=== PATIENT | female | born 1990 | race Caucasian/White ===

== ENCOUNTER 2017-01-25 19:41 | Emergency (ER) | payer MEDICAID ==
[~2017-01-25] VITALS: Ht 165.1 cm; Wt 103.4 kg
[~2017-01-25 19:41] MED LIST: AMOX/CLAV POT 81 TAB PO; ATIVAN0.5 MG PO; CARAFATE1 GM/10 ML PO; DEPAKOTE500 MG PO; PERCOCET 325 MG1 TA2 PO; PREDNISONE10 MG PO; PROTONIX40 MG PO; Synthroid,Lev125 MCG PO; ZANTAC 150150 MG PO
[2017-01-25] MEDS ORDERED: FLUOROMETHOLONE (19:59)
[2017-01-25] MEDS ORDERED: MEDROL DOSEPAK4 MG PO (20:22)
== END 2017-01-25 20:25 | disposition home or self-care (01) ==
LOC: ED 19:41
DX: H15.102 Unspecified episcleritis, left eye (principal); Z88.8 Allergy status to other drugs, medicaments and biological substances

== ENCOUNTER 2017-03-11 11:11 | Emergency (ER) | payer OTHER ==
[~2017-03-11] VITALS: Ht 165.1 cm; Wt 104.3 kg
[~2017-03-11 11:11] MED LIST changes: +FLUOROMETHOLONE; +MEDROL DOSEPAK4 MG PO
[2017-03-11] MEDS ORDERED: MIRENA52 MG IU (11:37)
[2017-03-11] MEDS ORDERED: Motrin,Rufen800 MG PO ×2 (14:21→14:24)
[2017-03-11] MEDS ORDERED: CYCLOBENZAPRINE10 MG PO ×2 (14:21→14:24)
== END 2017-03-11 14:43 | disposition home or self-care (01) ==
LOC: ED 11:11
DX: S16.1XXA Strain of muscle, fascia and tendon at neck level, initial encounter (principal); S09.90XA Unspecified injury of head, initial encounter; K21.9 Gastro-esophageal reflux disease without esophagitis; Z88.8 Allergy status to other drugs, medicaments and biological substances; Z79.899 Other long term (current) drug therapy; V87.7XXA Person injured in collision between other specified motor vehicles (traffic), initial encounter; Y93.89 Activity, other specified; Y92.89 Other specified places as the place of occurrence of the external cause; Y99.8 Other external cause status

== ENCOUNTER 2018-10-20 08:34 | Emergency (ER) | payer OTHER ==
[~2018-10-20] VITALS: Ht 165.1 cm; Wt 104.3 kg
[~2018-10-20 08:34] MED LIST changes: +CYCLOBENZAPRINE10 MG PO; +MIRENA52 MG IU; +Motrin,Rufen800 MG PO
[2018-10-20] MEDS ORDERED: DIAZEPAM5 MG PO (08:41)
[2018-10-20] MEDS ORDERED: PREDNISONE50 MG PO (08:54)
== END 2018-10-20 09:10 | disposition home or self-care (01) ==
LOC: ED 08:34
DX: L25.9 Unspecified contact dermatitis, unspecified cause (principal); K21.9 Gastro-esophageal reflux disease without esophagitis; Z88.8 Allergy status to other drugs, medicaments and biological substances; Z79.899 Other long term (current) drug therapy

== ENCOUNTER 2019-04-11 22:13 | Emergency (ER) | payer OTHER ==
[~2019-04-11] VITALS: Ht 340.3 cm; Wt 104.3 kg
[~2019-04-11 22:13] MED LIST changes: +DIAZEPAM5 MG PO; +PREDNISONE50 MG PO
[2019-04-11] MEDS ORDERED: VIBRAMYCIN100 MG PO (22:42)
[2019-04-11] MEDS ORDERED: ATARAX,VISTARIL50 MG PO (22:42)
[2019-04-11] MEDS ORDERED: KENALOG 0.1%80 GM T (22:42)
== END 2019-04-11 23:25 | disposition home or self-care (01) ==
LOC: ED 22:13
DX: S40.862A Insect bite (nonvenomous) of left upper arm, initial encounter (principal); S40.861A Insect bite (nonvenomous) of right upper arm, initial encounter; S80.862A Insect bite (nonvenomous), left lower leg, initial encounter; S80.861A Insect bite (nonvenomous), right lower leg, initial encounter; L08.9 Local infection of the skin and subcutaneous tissue, unspecified; K21.9 Gastro-esophageal reflux disease without esophagitis; Z79.899 Other long term (current) drug therapy; Z88.8 Allergy status to other drugs, medicaments and biological substances; W57.XXXA Bitten or stung by nonvenomous insect and other nonvenomous arthropods, initial encounter; Y93.89 Activity, other specified; Y92.89 Other specified places as the place of occurrence of the external cause; Y99.8 Other external cause status

== ENCOUNTER → 2021-12-09 | Outpatient (CLI) | payer OTHER ==
[~2021-12-09] MED LIST changes: +ATARAX,VISTARIL50 MG PO; +KENALOG 0.1%80 GM T; +VIBRAMYCIN100 MG PO
== END | disposition home or self-care (01) ==
LOC: RAD 17:37
PROVIDERS: ATTEND Nurse Practitioner Family
DX: F41.9 Anxiety disorder, unspecified (principal); R00.0 Tachycardia, unspecified; E66.9 Obesity, unspecified; Z82.49 Family history of ischemic heart disease and other diseases of the circulatory system

== ENCOUNTER → 2021-12-27 | Outpatient (CLI) | payer OTHER | END | disposition home or self-care (01) | LOC: CARD 12-13 09:00 | PROVIDERS: ATTEND Nurse Practitioner Family | DX: R00.0 Tachycardia, unspecified (principal); F41.9 Anxiety disorder, unspecified; E66.9 Obesity, unspecified; Z82.49 Family history of ischemic heart disease and other diseases of the circulatory system ==

== ENCOUNTER → 2022-04-09 | Outpatient (CLI) | payer OTHER | END | disposition home or self-care (01) | LOC: RAD 08:21 | PROVIDERS: ATTEND Nurse Practitioner Family | DX: R06.02 Shortness of breath (principal) ==

== ENCOUNTER → 2022-06-10 | Outpatient (CLI) | payer OTHER ==
[~2022-06-10] MED LIST changes: +LAMICTAL200 MG PO; +VALIUM5 MG PO; +VRAYLAR4.5 MG PO; +VYVANSE60 MG PO
== END ==
LOC: RAD 10:34
PROVIDERS: ATTEND Nurse Practitioner Family
DX: U07.1 COVID-19 (principal); R05.1 Acute cough; R06.2 Wheezing; R06.02 Shortness of breath; R00.0 Tachycardia, unspecified

== ENCOUNTER 2022-06-11 13:44 | Emergency (ER) | payer OTHER ==
[2022-06-11 13:59] LABS: BASO % 0.2 % (0.0-1.0); EOS % 0.1 % (1.0-4.0); LYMPH # 1.7 10*3/uL (1.3-4.4); LYMPH % 8.8 % (27.0-41.0); MEAN CELL VOLUME 87.3 fl (81.0-99.0); MEAN CORPUSCULAR HGB 28.2 pg (27.0-31.0); MEAN CORPUSCULAR HGB CONC 32.3 g/dl (33.0-37.0); MONO # 0.8 10*3/uL (0.1-1.0); NEUT # 16.1 10*3/uL (2.3-7.9); NEUT % 85.3 % (47.0-73.0); PLATELET COUNT AUTOMATED 317 10*3/uL (130-400); RED BLOOD COUNT 5.04 10*6/uL (4.10-5.10); RED CELL DISTRI WIDTH 13.2 % (0-14.5); WHITE BLOOD COUNT 18.8 10*3/uL (4.8-10.8)
[2022-06-11 14:19] LABS: ALKALINE PHOSPHATASE 99 U/L (45-117); BUN 8 mg/dl (7-24); CHLORIDE 108 mmol/L (98-107); CREATININE 0.89 mg/dL (0.55-1.02); POTASSIUM 4.1 mmol/L (3.5-5.1); SGOT/AST 18 IU/L (3-35); SGPT/ALT 31 U/L (12-78); SODIUM 140 mmol/L (136-145); TOTAL PROTEIN 7.6 gm/dL (6.4-8.2)
== END 2022-06-11 17:05 | disposition home or self-care (01) ==
LOC: ED 13:44
PROVIDERS: Internal Medicine
DX: T50.995A Adverse effect of other drugs, medicaments and biological substances, initial encounter (principal); Z88.8 Allergy status to other drugs, medicaments and biological substances; Z79.899 Other long term (current) drug therapy; Y92.89 Other specified places as the place of occurrence of the external cause

== ENCOUNTER → 2024-05-13 | Outpatient (CLI) | payer OTHER ==
[2024-05-13 15:46] LABS: BASO % 0.3 % (0.0-1.0); EOS # 0.1 10*3/uL (0.0-0.4); EOS % 1.4 % (1.0-4.0); HEMATOCRIT 42.7 % (37.0-47.0); LYMPH # 2.2 10*3/uL (1.3-4.4); LYMPH % 21.7 % (27.0-41.0); MEAN CELL VOLUME 85.1 fl (81.0-99.0); MEAN CORPUSCULAR HGB 27.7 pg (27.0-31.0); MEAN CORPUSCULAR HGB CONC 32.6 g/dl (33.0-37.0); MEAN PLATELET VOLUME 10.5 fl (9.6-12.3); MONO # 0.5 10*3/uL (0.1-1.0); MONO % 5.3 % (3.0-9.0); NEUT # 7.2 10*3/uL (2.3-7.9); NEUT % 70.8 % (47.0-73.0); PLATELET COUNT AUTOMATED 329 10*3/uL (130-400); RED BLOOD COUNT 5.02 10*6/uL (4.10-5.10); RED CELL DISTRI WIDTH 14.7 % (0-14.5); WHITE BLOOD COUNT 10.1 10*3/uL (4.8-10.8)
[2024-05-13 16:10] LABS: ALKALINE PHOSPHATASE 102 U/L (46-116); BUN 9 mg/dl (9-23); CHLORIDE 106 mmol/L (98-107); POTASSIUM 3.9 mmol/L (3.4-5.1); SGPT/ALT 23 U/L (5-49); TOTAL PROTEIN 7.2 gm/dL (6.0-8.0)
[2024-05-16 14:07] LABS: ANTI-DSDNA ANTIBODIES 2 IU/mL (0-9); ANTI-RNP ANTIBODIES 0.2 AI (0.0-0.9); ANTICHROMATIN ANTIBODIES <0.2 AI (0.0-0.9); ANTISCLERODERMA-70 AB <0.2 AI (0.0-0.9); SJOGREN ANTI-SS-A <0.2 AI (0.0-0.9); SJOREN AB, ANTI-SS-B <0.2 AI (0.0-0.9)
== END | disposition home or self-care (01) ==
LOC: LAB 15:13
PROVIDERS: ATTEND Nurse Practitioner Family
DX: H15.101 Unspecified episcleritis, right eye (principal)